=== PATIENT | female | born 1990 | race Two or more races ===

== ENCOUNTER 2025-06-25 17:05 | Emergency (ER) | payer OTHER, SELFPAY ==
[2025-06-25 17:06] VITALS: BMI 28.8
[2025-06-25 17:26] VITALS: BP 127/80; PULSE 81; RESP 19; TEMP 37; O2SAT 97
--- NOTE | 2025-06-25 17:36 | XR_ITS ---
Examination: Complete OB ultrasound, less than 14 weeks, transabdominal Date and time of exam: June 25, 2025, 2120 hours INDICATIONS: Vaginal bleeding beginning 5 days ago Technique: Obstetrical ultrasound images less than 14 weeks performed via transabdominal imaging Findings: Uterus 10.0 cm intrauterine gestational sac in the lower uterine segment, 0.5 cm corresponding to 5 weeks 3 days gestational age No pole, no cardiac motion Right ovary 2.4 cm arterial flow Left ovary 2.7 cm arterial flow IMPRESSION: Findings most consistent with spontaneous in progress Recommend short-term follow-up transvaginal pelvic sonography
--- NOTE | 2025-06-25 17:37 | EDNOTE_ITS ---
ED General RME/HPI General Chief complaint: Vaginal Bleeding Stated complaint: POSS. MISCARRIAGE, 5 WEEKS OB; VAG BLEEDING Time Seen by Provider: 06/25/25 17:35 Arrival date/time: 06/25/25 17:05 CC: Vaginal bleeding with clots low abdominal cramping and low back pain HPI ongoing for the past 5 days. Is acute patient is a G5, P1 who found out she was 2 weeks ago. Denies fever chills nausea vomiting headache shortness of breath or difficulty breathing. Related Data Allergies Allergy/AdvReac Type Severity Reaction Status Date / Time No Known Allergies Allergy Verified 06/25/25 17:09 Review of Systems Review of Systems Narrative Review of Systems: GEN: No fever, no chills, no weight loss EYES: No discharge, no visual changes, no pain HEENT: No ear pain, no congestion, no sore throat PULM: No shortness of breath, no cough, no congestion CV: No chest pain, no dyspnea on exertion, no palpitations GI: No nausea, no vomiting, no diarrhea, no pain, no constipation : No frequency, no urgency, no dysuria MUSC/SKEL: No joint pain, no back pain SKIN: No rash PSYCH: No hallucinations, no depression HEME/LYMPH: No easy bleeding or bruising tendencies NEURO: No weakness, no headache Past Medical History Social History SMOKING STATUS: Never smoker ED Exam Narrative Physical exam: [General: Not in any acute distress Head normocephalic HEENT: Within acceptable limits Neck is supple nontender Chest equal chest rise nontender to palpation Respiratory: Clear to auscultation no wheezes crackles or rubs CV: Rate rhythm is regular no murmurs rubs or clicks Abdomen is soft nontender no masses positive bowel sounds all 4 quadrants Back: No CVA tenderness no spinous process tenderness from cervical spine thoracic and lumbar spine Skin: Intact no petechiae rash induration ulceration or crepitus Extremities: Moving all extremity against resistance cap refill less than 2 seconds neurosensory intact Neuro: Awake alert oriented x3 Glascow coma 15 no focal deficits] Course Quality Measures none Orders Category Date Time Status US OB <= 14 weeks fetus Stat Exams 06/25/25 17:36 Completed ABO/RH Type Stat Lab 06/25/25 17:45 Completed Beta HCG,Quantitative Stat Lab 06/25/25 17:45 Completed CBC Stat Lab 06/25/25 17:45 Completed Urinalysis Stat Lab 06/25/25 18:05 Completed Vital Signs Vital signs: Vital Signs Temperature 98.6 F 06/25/25 17:26 Pulse Rate 81 06/25/25 17:26 Respiratory Rate 19 06/25/25 17:26 Blood Pressure 127/80 06/25/25 17:26 Pulse Oximetry (%) 97 06/25/25 17:26 Oxygen Delivery Method Room Air 06/25/25 17:26 Discharge Plan Plan Patient Disposition: HOME (Self Care) Patient condition on transfer: Stable Prescriptions/Referrals Referrals: Tesha Raphael PA-C [Primary Care Provider] - In 1 week Problem List Clinical Impression: Incomplete miscarriage Patient/Caregiver Discharge Instructions Other Activity Instructions:: Your quantitative hCG is 891. Please return in 1 week or follow-up with your [facility] for repeat ultrasound and quantitative hCG measuring. If you wind up having significant foul-smelling or dark discharge with fever return immediately to the emergency room for reevaluation. Education Materials: ED Miscarriage, Incomplete Print Language: Korean Stand Alone Forms: Jyoti Award Info., Work/School Release, Patient Portal Info Letter ALENA/ELISA Supervising Physician ANA LUISA Supervising Physician: Jaspreet Moody ENP [facility] Clinical Information Provided by: patient Medical Records reviewed [facility] Meds/Rx considered, not ordered None Labs/Rad/Tests considered, not ordered None Labs Labs: interpreted by nd Lab(s) Interpretation(s): CBC shows no acute leukocytosis anemia thrombocytopenia Beta quant is 891. Urine is turbid 3+ blood no signs of infection. ABO Rh is O+. Imaging Imaging interpretation: interpreted by nd Imaging Interpretation(s): Ultrasound findings consistent with a spontaneous miscarriage.
[2025-06-25 17:55] LABS: Basophils # (Auto) 0.1 Thou/mm3 (0.0-0.2); Basophils % (Auto) 1 % (0-2.5); Eosinophils # (Auto) 0.3 Thou/mm3 (0.0-0.5); Eosinophils % (Auto) 4 % (0-10); Hematocrit 40.9 % (36.0-46.0); Hemoglobin 13.3 g/dL (12.0-16.0); Immature Granulocytes Auto 0.02 Thou/mm3 (0.00-0.00); Lymphocytes # (Auto) 1.9 Thou/mm3 (1.0-4.8); Lymphocytes % (Auto) 26 % (10-50); Mean Corpuscular HGB Conc 32.5 g/dl (31.0-37.0); Mean Corpuscular Hemoglobin 28.9 pg (25.0-35.0); Mean Corpuscular Volume 89 fL (80-100); Monocytes # (Auto) 0.5 Thou/mm3 (0.0-0.8); Monocytes % (Auto) 7 % (0-12); Neutrophils # (Auto) 4.6 Thou/mm3 (1.8-7.7); Neutrophils % (Auto) 62 % (37-80); Nucleated Red Blood Cell # 0.00 Thou/mm3 (0.00-0.00); Nucleated Red Blood Cell % 0 /100 WBC (0); Platelet Count 212 Thou/mm3 (140-440); RDW Standard Deviation 44.6 fL (36.4-46.3); Red Blood Count 4.60 Miln/mm3 (4.00-5.20); White Blood Count 7.4 Thou/mm3 (3.6-11.0)
[2025-06-25 18:13] LABS: Collection Type, Urine Clean Catch
[2025-06-25 18:16] LABS: Bacteria,Urine Rare; Bilirubin,Urine Negative (Negative); Blood,Urine 3+ (Negative); Clarity,Urine Turbid (Clear/Hazy); Color,Urine Lt-Yellow (Lt Yel-Yel); Glucose, Urine Negative (Negative); Ketones,Urine Negative (Negative); Leukocyte Esterase,Urine Positive (Negative); Nitrite,Urine Negative (Negative); PH,Urine 7.0 (5.0-7.0); Protein,Urine Trace (Neg - Trace); RBC,Urine 645 /hpf (0-3); Specific Gravity,Urine 1.026 (1.001-1.035); Squamous Epithelial Cell,Urine 5 /hpf (0-5); Urobilinogen,Urine Negative mg/dL (0.0-1.0); WBC,Urine 13 /hpf (0-5)
[2025-06-25 18:40] LABS: Beta HCG,Quantitative 891 mIU/mL (<5.0)
[2025-06-25 22:09] VITALS: BP 140/86; PULSE 72; RESP 17; TEMP 36.9; O2SAT 98
== END 2025-06-25 22:22 | disposition home or self-care (01) ==
PROVIDERS: Registered Nurse General Practice; Emergency Provider Family Medicine; PCP Physician Assistant
DX: O03.4 Incomplete spontaneous abortion without complication (principal)
CPT/HCPCS: 36415; 76801; 81001; 84702; 85025; 86900; 86901; 99283